=== PATIENT | female | born 2000 | race Caucasian/White ===

== ENCOUNTER 2023-01-29 08:01 | Emergency (ER) | payer OTHER, BC ==
[~2023-01-29] VITALS: Ht 162.6 cm; Wt 57.2 kg
[2023-01-29 09:03] VITALS: BP 120/79; TEMP 99; O2SAT 100
[2023-01-29] MEDS ORDERED: AMOX500C2 PO (09:18)
[2023-01-29] MEDS ORDERED: dexAMETHasone 1 MG TABLET ONE (09:24)
[2023-01-29] MEDS ORDERED: AMOXICILLIN TRIHYDRATE 250 MG CAPSULE ONE (09:24)
[2023-01-29] MEDS ORDERED: dexAMETHasone 4 MG TABLET ONE (09:24)
[2023-01-29] MEDS ORDERED: IBUPROFEN 600 MG TABLET ONE (09:25)
[2023-01-29] MEDS ORDERED: dexAMETHasone 1 MG TABLET PO ONE (09:30)
[2023-01-29] MEDS ORDERED: IBUPROFEN 600 MG TABLET PO ONE (09:30)
[2023-01-29] MEDS ORDERED: AMOXICILLIN TRIHYDRATE 500 MG CAPSULE PO ONE (09:30)
== END 2023-01-29 09:33 | disposition home or self-care (01) ==
LOC: ER 08:10
DX: J02.0 Streptococcal pharyngitis (principal)
CPT/HCPCS: 99284; J8540 ×2

== ENCOUNTER 2023-05-02 08:16 | Emergency (ER) | payer OTHER, BC ==
[~2023-05-02] VITALS: Ht 162.6 cm; Wt 54.4 kg
[~2023-05-02 08:16] MED LIST: AMOX500C2 PO
[2023-05-02 08:34] VITALS: BP 139/83; TEMP 98
[2023-05-02 09:57] VITALS: O2SAT 98
== END 2023-05-02 09:58 | disposition home or self-care (01) ==
LOC: ER 08:21
DX: S01.112A Laceration without foreign body of left eyelid and periocular area, initial encounter (principal); Z79.899 Other long term (current) drug therapy; W18.39XA Other fall on same level, initial encounter; Y93.89 Activity, other specified; Y92.89 Other specified places as the place of occurrence of the external cause; Y99.8 Other external cause status